=== PATIENT | female | born 1955 | race Caucasian/White ===

== ENCOUNTER 2018-10-04 06:46 | Day surgery (SDC) | payer BC, MEDICAID ==
[~2018-10-04] VITALS: Ht 160 cm; Wt 69.0 kg
[2018-10-04 08:06] VITALS: Ht 160 cm; Wt 69.0 kg
[2018-10-04] MEDS ORDERED: LEVO75TA5 PO (08:15)
[2018-10-04] MEDS ORDERED: [UNRECOGNIZED DRUG - REMARK] (08:15)
[2018-10-04 09:10] VITALS: BP 118/81; PULSE 61; RESP 18
[2018-10-04] MEDS ORDERED: FENTAnyl 50 MCG/ML VIAL ONE (09:49)
[2018-10-04] MEDS ORDERED: MIDAZOLAM 1 MG/ML 2 ML INJ ONE ×2 (09:49)
[2018-10-04 10:09] VITALS: BP 97/60; PULSE 62; RESP 18
== END 2018-10-04 12:32 | disposition home or self-care (01) ==
LOC: GIL 06:46
PROVIDERS: ATTEND Internal Medicine Gastroenterology
DX: Z12.11 Encounter for screening for malignant neoplasm of colon (principal); K31.7 Polyp of stomach and duodenum; D12.5 Benign neoplasm of sigmoid colon; K21.9 Gastro-esophageal reflux disease without esophagitis
CPT/HCPCS: 43239; 45380; 88305; 88312; J2250; J3010; Z7610